=== PATIENT | male | born 1975 | race Caucasian/White ===

== ENCOUNTER 2017-01-29 03:27 | Emergency (ER) | payer OTHER ==
[~2017-01-29] VITALS: Ht 175.3 cm; Wt 100.5 kg
[2017-01-29 03:32] VITALS: Ht 175.3 cm; Wt 100.5 kg
[2017-01-29] MEDS ORDERED: ASPIRIN 325 MG TAB PO STA (04:17)
[2017-01-29] MEDS ORDERED: LIDOCAINE/MYLANTA 40 ML BTL PO ONE (04:30)
--- NOTE | 2017-01-29 04:47 | RADRPT ---
PROCEDURE: CHEST - 1 VIEW CLINICAL INDICATION: 41-year-old male with chest pain. TECHNIQUE: A single frontal AP portable view of the chest was performed. The images were reviewed on a PACS workstation. COMPARISON: None. FINDINGS: The cardiomediastinal silhouette has a normal appearance. There is a shallow inspiration. There is mild bibasilar subsegmental atelectasis. There is no evidence for an infiltrate. There is no evid ence for congestive heart failure. There is no evidence for pneumothorax. The osseous structures are intact. IMPRESSION: Shallow inspiration with mild bibasilar subsegmental atelectasis. .Glenn Newberry MD, MD Date Time Electronically viewed and signed by .Glenn Newberry MD, on 01/29/2017 04:47 .Pelon/
[2017-01-29 05:01] LABS: ADD SCAN DIFF NO
[2017-01-29 05:02] LABS: BASOPHILS % 0.5 % (0.0-2.0); EOSINOPHILS % 0.3 % (0.0-7.0); HEMATOCRIT 47.8 % (42.0-52.0); HEMOGLOBIN 17.2 g/dl (14.0-18.0); LYMPHOCYTES # 1.8 10^3/ul (0.8-2.9); LYMPHOCYTES % 20.6 % (15.0-51.0); MEAN CORPUSCULAR HEMOGLOBIN 31.4 pg (29.0-33.0); MEAN CORPUSCULAR VOLUME 87.2 fl (82.0-101.0); MEAN PLATELET VOLUME 10.1 fl (7.4-10.4); MONOCYTE # 0.7 10^3/ul (0.3-0.9); MONOCYTES % 8.6 % (0.0-11.0); NEUTROPHILS % 69.8 % (39.0-77.0); PLATELET COUNT 291 10^3/UL (140-415); RED BLOOD COUNT 5.48 10^6/ul (4.70-6.10); RED CELL DISTRIBUTION WIDTH 12.2 % (11.5-14.5); WHITE BLOOD COUNT 8.6 10^3/ul (4.8-10.8)
[2017-01-29 05:11] LABS: CHLORIDE 95 mmol/L (97-110)
[2017-01-29 05:12] LABS: POTASSIUM 3.6 mmol/L (3.5-5.1); SODIUM 136 mmol/L (135-144)
[2017-01-29 05:15] LABS: ANION GAP 22 (8-16); BLOOD UREA NITROGEN 9 mg/dl (7-20); CALCIUM 8.5 mg/dl (8.4-10.2); CARBON DIOXIDE 23 mmol/L (21-31); GLUCOSE 123 mg/dl (70-220)
[2017-01-29 05:20] LABS: INR 1.11; PARTIAL THROMBOPLASTIN TIME 27.9 Sec (25.0-35.0); PROTIME 14.3 Sec (12.2-14.2); PT RATIO 1.1
[2017-01-29] MEDS ORDERED: KETOROLAC 30 MG INJ IV STA (05:23)
[2017-01-29 05:30] LABS: TROPONIN-I < 0.012 ng/ml (0.00-0.12)
[2017-01-29] MEDS ORDERED: morphine 4 MG/ML VIAL IV STA (10:23)
[2017-01-29] MEDS ORDERED: ONDANSETRON 4 MG INJ IV STA (10:23)
[2017-01-29] MEDS ORDERED: SOD CHLORIDE 0.9% 500 ML IV STA (10:23)
[2017-01-29 10:41] LABS: BILIRUBIN,INDIRECT 0.8 mg/dl (0-1.1); BILIRUBIN,TOTAL 0.8 mg/dl (0.2-1.3); TOTAL PROTEIN 7.9 g/dl (6.1-8.1)
--- NOTE | 2017-01-29 12:19 | ERA ---
ER Documentation Chief Complaint Date/Time DATE: 01/29/17 TIME: 12:16 Chief Complaint chest pain x 2 hours HPI This is a 41-year-old gentleman prior history of cholecystectomy who presents to the emergency room complaining of epigastric abdominal discomfort. The patient describes approximately 2 hours prior to arrival epigastric abdominal discomfort that he describes as fullness. He denies any pleuritic pain, no shortness of breath. He describes multiple episodes of nonbloody nonbilious emesis. Bowel movement yesterday. At triage she noted chest pain but denies any focal chest pain to me, no exertional symptoms. ROS All systems reviewed and are negative except as per history of present illness. Medications Home Meds Active Scripts Dicyclomine Hcl* (Bentyl*) 10 Mg Capsule, 10 MG PO QID Y for abdominal cramping , #30 CAP Prov:ALBER GILLIS MD 01/29/17 Ondansetron (Ondansetron Odt) 4 Mg Tab.rapdis, 4 MG PO Q6H Y for NAUSEA AND/OR VOMITING, #30 TAB Prov:ALBER GILLIS MD 01/29/17 Allergies Allergies: Coded Allergies: No Known Drug Allergies (Verified Allergy, Unknown, 01/29/17) PMhx/Soc History of Surgery: No Anesthesia Reaction: No Hx Neurological Disorder: No Hx Respiratory Disorders: No Hx Cardiac Disorders: No Hx Psychiatric Problems: No Hx Miscellaneous Medical Probl: No Hx Alcohol Use: No Hx Substance Use: No Hx Tobacco Use: No Smoking Status: Never smoker FmHx Family History: No diabetes Physical Exam Vitals Vital Signs Date Time Temp Pulse Resp B/P Pulse Ox O2 Delivery O2 Flow Rate FiO2 01/29/17 12:52 98.4 86 18 142/73 97 Room Air 01/29/17 11:07 98.4 84 20 150/81 97 Room Air 01/29/17 09:00 80 26 136/94 97 Room Air 01/29/17 06:30 87 24 133/94 98 Room Air 01/29/17 04:50 85 22 127/91 96 Room Air 01/29/17 04:05 93 25 138/98 98 Room Air 01/29/17 03:32 98.0 105 20 153/96 96 Physical Exam General: Uncomfortable Head: Normocephalic, atraumatic. Eyes: Pupils equally reactive, EOM intact ENT: Moist mucous membranes Neck: Supple, no lymphadenopathy Respiratory: Lungs clear bilaterally, no distress Cardiovascular: RRR, no murmurs, rubs, or gallops Abdominal: Soft, focal tenderness to the epigastrium, slightly right-sided, no peritonitis, no rebound or guarding, no pulsatile mass : Deferred MSK: No edema, no unilateral swelling, 5/5 strength Neurologic: Alert and oriented, moving all extremities, normal speech, no focal weakness, no cerebellar signs Skin: No rash Psych: Normal mood Result Diagram: 01/29/1741901/29/17419 Results 24 hrs Laboratory Tests Test 01/29/17 04:20 White Blood Count 8.610^3/ul Red Blood Count 5.4810^6/ul Hemoglobin 17.2g/dl Hematocrit 47.8% Mean Corpuscular Volume 87.2fl Mean Corpuscular Hemoglobin 31.4pg Mean Corpuscular Hemoglobin Concent 36.0g/dl Red Cell Distribution Width 12.2% Platelet Count 91274^3/UL Mean Platelet Volume 10.1fl Neutrophils % 69.8% Lymphocytes % 20.6% Monocytes % 8.6% Eosinophils % 0.3% Basophils % 0.5% Nucleated Red Blood Cells % 0.0/100WBC Neutrophils # 6.010^3/ul Lymphocytes # 1.810^3/ul Monocytes # 0.710^3/ul Eosinophils # 0.010^3/ul Basophils # 0.010^3/ul Nucleated Red Blood Cells # 0.010^3/ul Prothrombin Time 14.3Sec Prothrombin Time Ratio 1.1 INR International Normalized Ratio 1.11 Activated Partial Thromboplast Time 27.9Sec Sodium Level 136mmol/L Potassium Level 3.6mmol/L Chloride Level 95mmol/L Carbon Dioxide Level 23mmol/L Anion Gap 22 Blood Urea Nitrogen 9mg/dl Creatinine 0.70mg/dl Glucose Level 123mg/dl Calcium Level 8.5mg/dl Total Bilirubin 0.8mg/dl Direct Bilirubin 0.00mg/dl Indirect Bilirubin 0.8mg/dl Aspartate Amino Transf (AST/SGOT) 89IU/L Alanine Aminotransferase (ALT/SGPT) 103IU/L Alkaline Phosphatase 98IU/L Troponin I < 0.012ng/ml Total Protein 7.9g/dl Albumin 5.0g/dl Lipase 131U/L Current Medications Medications (Trade) Dose Ordered Sig/Kuldeep Route PRN Reason Start Time Stop Time Status Last Admin Dose Admin Aspirin (Aspirin) 325 mg ONCE STAT PO 01/29/17 04:17 01/29/17 04:18 DC 01/29/17 04:29 Miscellaneous Medication (Gi Cocktail (2)) 40 ml ONCE ONCE PO 01/29/17 04:30 01/29/17 04:31 DC 01/29/17 04:29 Ketorolac Tromethamine 30 mg 30 mg ONCE STAT IV 01/29/17 05:23 01/29/17 05:24 DC 01/29/17 05:30 Sodium Chloride (NS) 500 ml @ 500 mls/hr Q1H STAT IV 01/29/17 10:23 01/29/17 11:22 DC 01/29/17 10:37 Morphine Sulfate (morphine) 4 mg ONCE STAT IV 01/29/17 10:23 01/29/17 10:25 DC 01/29/17 10:37 Ondansetron HCl (Zofran Inj) 4 mg ONCE STAT IV 01/29/17 10:23 01/29/17 10:25 DC 01/29/17 10:37 Lorazepam (Ativan) 1 mg ONCE ONCE IV 01/29/17 13:00 01/29/17 13:01 DC 01/29/17 12:50 Procedures/MDM EKG, MONITORS, & DIAGNOSTIC IMAGING: EKG: I reviewed and interpreted a 12-lead EKG. Rhythm: Normal sinus rhythm Ectopy: None Intervals: No abnormalities ST segments: No elevations or depressions T waves: No contiguous inversions Chest x-ray: I reviewed and interpreted a 1 view of the chest Mediastinum: No enlargement Cardiac silhouette: No cardiomegaly Airspace: Clear lung cabral bilaterally without evidence of pneumothorax Bones: No evidence of fracture CT abdomen and pelvis: IMPRESSION: 1. No CT evidence of acute intra-abdominal or pelvic process. 2. Mild right posterior lower lobe subsegmental atelectasis. 3. Fatty infiltration of the liver. 4. Status post cholecystectomy. 5. 2 mm left lower pole nonobstructing renal calculus. 6. 7 mm nonspecific exophytic lesion arising from the upper pole of the left kidney. Consider further evaluation with ultrasound as indicated. 7. Moderate periumbilical hernia containing only fat. RPTAT: KK LAB INTERPRETATION: Negative troponin x 2 MEDICAL DECISION MAKING: The patient presents with epigastric abdominal pain. At triage it was noted that the patient had chest pain but he denies this to me. No significant risk factors for early cardiac disease, no signs of PE or dissection. He has no risk factors for pulmonary embolism. The patient seems to have focal tenderness to the abdomen. The patient has a broad differential including bowel obstruction, gastritis, peptic ulcer disease. ER COURSE: The patient was given a GI cocktail with no significant improvement. EKG and troponin are negative. Given persistence of symptoms CT imaging of the abdomen and pelvis was ordered. Patient given IV fluids and pain medication. The patient had improvement after Ativan was provided. Repeat abdominal exam is improving. The patient's laboratory testing is unrevealing and CT imaging is negative. Troponin negative 2. At this time I do not believe this is cardiogenic. The patient has limited risk factors for cardiogenic processes. Consider possible viral syndrome versus gastritis versus peptic ulcer disease. The patient will be referred to gastroenterology, initiated on Zofran and Bentyl. Advised [id number] Pepcid. The patient verbalizes understanding. We discussed return precautions for worsening symptoms. I kept the patient and/or family informed of laboratory and diagnostic imaging results throughout the emergency room course. DISPOSITION PLAN: We discussed follow up with the patient's primary care doctor within 24 to 48 hours as needed. We also discussed return to the emergency room for worsening symptoms or worsening condition. Outpatient referral: Gastroenterology Discharge Medications: Zofran, Bentyl Departure Diagnosis: Primary Impression: Epigastric abdominal pain Additional Impression: Nausea and vomiting Qualified Code: R11.2 - Non-intractable vomiting with nausea, unspecified vomiting type Condition: Stable ALBER GILLIS MD Jan 29, 2017 12:19
[2017-01-29] MEDS ORDERED: LORAZEPAM 2 MG INJ IV ONE (13:00)
--- NOTE | 2017-01-29 13:07 | RADRPT ---
PROCEDURE: CT Abdomen and Pelvis without contrast. CLINICAL INDICATION: Abdominal pain TECHNIQUE: CT scan of the abdomen and pelvis without contrast was performed on a multi-slice CT sc madi without intravenous contrast. Coronal and sagittal reformatted images were obtained from the axial source images. Images were reviewed on a high-resolution PACS workstation. One or more of the following does reduction techniques were used: Automated exposure control; adjustment of the mA an d/or kV according to patient size; use of the aorta of reconstruction technique. The total exam CTD I equals 23.24 mGy and the total exam DLP equals 1429.5 mGy-cm. COMPARISON: None available. FINDINGS: There is mild right posterior lower lobe subsegmental atelectasis. Lung bases are otherwise clear. Heart size is normal, and there is no evidence of pericardial thickening or effusion. The liver demonstrates diffuse decreased attenuation consistent with fatty infiltration. The liver, spleen, and pancreas are otherwise normal given the limitations of a noncontrast CT examination. T he gallbladder is surgically absent. The adrenal glands are normal. There is a 2 mm left lower pole nonobstructing renal calculus. No o ther renal calculi are seen. There is a 7 mm lesion arising exophytically from the upper pole of th e left kidney which is too small to characterize. There is no evidence of hydronephrosis.. The aorta is of normal caliber. There is no retroperitoneal lymph node enlargment. There is no evidence of large or small bowel obstruction. A normal appendix is identified.. No fr ee fluid or fluid collections are identified. No inflammatory changes are seen. There is a moderate periumbilical hernia containing only fat No enlarged pelvic sidewall lymph nodes are seen. The bladder is within normal limits. No free fl uid is identified. The inguinal regions are unremarkable. There are mild to moderate degenerative changes of the lumbar spine. IMPRESSION: 1. No CT evidence of acute intra-abdominal or pelvic process. 2. Mild right posterior lower lobe subsegmental atelectasis. 3. Fatty infiltration of the liver. 4. Status post cholecystectomy. 5. 2 mm left lower pole nonobstructing renal calculus. 6. 7 mm nonspecific exophytic lesion arising from the upper pole of the left kidney. Consider furt her evaluation with ultrasound as indicated. 7. Moderate periumbilical hernia containing only fat. RPTAT: KK .Toño Guillen MD, MD Date Time Electronically viewed and signed by .Toño Guillen MD, MD on 01/29/2017 13:06 .B/
[2017-01-29] MEDS ORDERED: ONDA4TAB14 PO (13:34)
[2017-01-29] MEDS ORDERED: DICY10CA60 PO (13:34)
[2017-01-29 14:14] VITALS: BP 128/76; PULSE 82; RESP 16; TEMP 98.4
== END 2017-01-29 14:16 | disposition home or self-care (01) ==
LOC: E/R 03:27
DX: R10.13 Epigastric pain (principal); R11.2 Nausea with vomiting, unspecified
CPT/HCPCS: 36415; 71010; 74176; 80048; 80076; 83690; 84484; 85025; 85610; 85730; 93005; 96374; 96375; J1885; J2060; J2270; J2405; J7040; Z7502; Z7610

== ENCOUNTER 2018-12-12 03:47 | Emergency (ER) | payer OTHER ==
[~2018-12-12] VITALS: Ht 162.6 cm; Wt 73.4 kg
[~2018-12-12 03:47] MED LIST: DICY10CA40 PO; ONDA4TAB14 PO
[2018-12-12 03:57] VITALS: Ht 162.6 cm; Wt 73.4 kg
--- NOTE | 2018-12-12 04:32 | PSY ---
Date/Time of Note Date/Time of Note DATE: 12/12/18 TIME: 04:27 Psychiatric Subjective Eval Consent Pt consented to telemedicine: Yes Subjective Evaluation Patient location: emergency Chief Complaint: anxiety, paranoid schizophrenia, out of meds Medical history Problems Medical Problems: (1) Epigastric abdominal pain Status: Acute (2) Nausea and vomiting Status: Acute Allergies: Coded Allergies: No Known Drug Allergies (Verified Allergy, Unknown, 01/29/17) Assessment and Plan Recommendation/Plan Discharge Disposition: Psychiatric inpatient Legal Status: Voluntary Assessment Additional comments: IDENTIFYING INFORMATION: 43 year old Male patient who is currently located at the hospital and for whom psychiatric consultation was requested. SOURCES OF INFORMATION: The patient who appears to be unreliable and the medical records; the nursing staff. CHIEF COMPLAINT: "voices". HISTORY OF PRESENT ILLNESS: The patient was interviewed via telemedicine in the presence of and under the supervision of nursing staff of the hospital. The consent to conducting this interview via telemedicine was obtained by the nursing staff at the hospital. RN Madison reports that the patient presented with anxiety, AH, is scared he might hurt himself. The patient reports having AH, SI, delusions. The patient denies having HI. The patient denies using alcohol heavily or regularly. The patient reports using "hallucinogenic drugs". The patient denies using any other substances. In terms of past psychiatric history, the patient reports having a history of past psychiatric hospitalizations. The patient reports having a history of past suicide attempts. Past medication trials: lithium, nexium. PAST MEDICAL HISTORY: none. CURRENT MEDICATIONS: none. ALLERGIES TO MEDICATIONS: NKDA. LABORATORY TESTS: pending. SOCIAL HISTORY: unable to assess fully, lives alone, REVIEW OF SYSTEMS: Constitutional (e.g., fever, weight loss): negative; Eyes, Ears, Nose, Mouth, Throat: negative; Cardiovascular: negative; Respiratory: negative; Gastrointestinal: negative; Genitourinary: negative; Musculoskeletal: negative; Integumentary (skin and/or breast): negative; Neurological: negative; Psychiatric: as per HPI; Endocrine: negative; Hematologic/Lymphatic: negative; Allergic/Immunologic: negative. MENTAL STATUS EXAMINATION: General Appearance and Behavior: Calm, cooperative with the interview, pleasant with the current interviewer, makes fair eye contact, fairly groomed, no abnormal movements noted, Speech: Regular rate, regular rhythm, normal latency, normal volume, somewhat decreased amount, Flow of thought: illogical, tangential, Content of thought: + auditory hallucinations, no visual hallucinations, + delusions, positive for suicidal ideation; no homicidal ideation, Mood: "depressed", Affect: dysthymic, dysphoric, not reactive, Attention: normal based on the interview, Insight: fair, Judgment: poor, Memory: normal based on the interview, Sensorium: alert and oriented to person, unable to assess fully. ASSESSMENT: The patient's presentation and history are consistent with the diagnosis of unspecified psychotic disorder, stimulant use disorder. The patient presents with an exacerbation of psychosis in the context of medication noncompliance, psychosocial stressors and substance use. PLAN: - Medication management: Would start Zyprexa 5 mg by mouth twice a day. Would start haloperidol 5 mg IM PRN severe agitation q4 hours. Would start diphenhydramine 50 mg IM PRN severe agitation q4 hours. Would start lorazepam 2 mg IM PRN severe agitation q4 hours Will defer to the inpatient psychiatry team for other medication changes. - Labs: Please check CBC, CMP, Alcohol level, UDS. - Psychotherapy: Provided supportive psychotherapy and psychoeducation. - Disposition: Would recommend voluntary admission to the inpatient psychiatric unit as the patient would benefit from such an intervention so long as the patient has been cleared medically for admission to psychiatry. The patient is agreeable to being hospitalized in the inpatient psychiatric unit at this time. Would place on suicide precautions. I called the emergency room physician who is taking care of the patient to disc uss about the above plan but the emergency room physician is not available at this time. I left my phone number with the hospital staff requesting a callback so that the emergency room physician can reach me when they become available. NIKITA WATTERS MD Dec 12, 2018 04:32
--- NOTE | 2018-12-12 05:29 | ERD ---
ER Documentation Chief Complaint Chief Complaint anxiety, paranoid schizophrenia, out of meds HPI This is a 43-year-old male who originally came for complaint of medication refill but upon arrival to the room he says he is hearing voices and he feels like he might "freak out". He has been off his meds for a few days. No nausea no vomiting no fever chills. No other current complaints. Patient denies homicidal ideation. Denies visual hallucinations. History of paranoid schizophrenia and anxiety. ROS All systems reviewed and are negative except as per history of present illness. Medications Home Meds Active Scripts Dicyclomine HCl (Dicyclomine HCl) 10 Mg Capsule, 10 MG PO QID PRN for abdominal cramping, #30 CAP Prov:ALBER GILLIS MD 01/29/17 Ondansetron (Ondansetron Odt) 4 Mg Tab.rapdis, 4 MG PO Q6H PRN for NAUSEA AND/OR VOMITING, #30 TAB Prov:ALBER GILLIS MD 01/29/17 Allergies Allergies: Coded Allergies: No Known Drug Allergies (Verified Allergy, Unknown, 01/29/17) PMhx/Soc History of Surgery: No Anesthesia Reaction: No Hx Neurological Disorder: No Hx Respiratory Disorders: No Hx Cardiac Disorders: No Hx Psychiatric Problems: Yes (zchizo,anxiety) Hx Miscellaneous Medical Probl: Yes Hx Alcohol Use: No Hx Substance Use: No Hx Tobacco Use: No Smoking Status: Unknown if ever smoked Physical Exam Vitals Vital Signs Date Temp Pulse Resp B/P (MAP) Pulse Ox O2 O2 Flow FiO2 Time Delivery Rate 12/12/18 97.1 74 18 124/69 100 03:57 (87) Physical Exam Const: No acute distress Head: Atraumatic Eyes: Normal Conjunctiva ENT: Normal External Ears, Nose and Mouth. Neck: Full range of motion. No meningismus. Resp: Clear to auscultation bilaterally Cardio: Regular rate and rhythm, no murmurs Abd: Soft, non tender, non distended. Normal bowel sounds Skin: No petechiae or rashes Back: No midline or flank tenderness Ext: No cyanosis, or edema Neur: Awake and alert Psych: Normal Mood and Affect Result Diagram: 12/12/18 0436 12/12/18435 Results 24 hrs Laboratory Tests Test 12/12/18 04:36 White Blood Count 7.3 10^3/ul Red Blood Count 4.08 10^6/ul Hemoglobin 13.0 g/dl Hematocrit 37.7 % Mean Corpuscular Volume 92.4 fl Mean Corpuscular Hemoglobin 31.9 pg Mean Corpuscular Hemoglobin Concent 34.5 g/dl Red Cell Distribution Width 12.6 % Platelet Count 225 10^3/UL Mean Platelet Volume 9.9 fl Immature Granulocytes % 0.300 % Neutrophils % 63.2 % Lymphocytes % 23.0 % Monocytes % 9.5 % Eosinophils % 3.2 % Basophils % 0.8 % Nucleated Red Blood Cells % 0.0 /100WBC Immature Granulocytes # 0.020 10^3/ul Neutrophils # 4.6 10^3/ul Lymphocytes # 1.7 10^3/ul Monocytes # 0.7 10^3/ul Eosinophils # 0.2 10^3/ul Basophils # 0.1 10^3/ul Nucleated Red Blood Cells # 0.0 10^3/ul Sodium Level 140 mmol/L Potassium Level 3.4 mmol/L Chloride Level 106 mmol/L Carbon Dioxide Level 26 mmol/L Anion Gap 8 Blood Urea Nitrogen 10 mg/dl Creatinine 0.57 mg/dl Est Glomerular Filtrat Rate mL/min > 60 mL/min Glucose Level 110 mg/dl Calcium Level 8.8 mg/dl Total Bilirubin 0.6 mg/dl Direct Bilirubin 0.00 mg/dl Indirect Bilirubin 0.6 mg/dl Aspartate Amino Transf (AST/SGOT) 52 IU/L Alanine Aminotransferase (ALT/SGPT) 34 IU/L Alkaline Phosphatase 78 IU/L Total Protein 6.3 g/dl Albumin 3.8 g/dl Globulin 2.50 g/dl Albumin/Globulin Ratio 1.52 Salicylates Level < 1.0 mg/dl Acetaminophen Level < 10.0 ug/ml Ethyl Alcohol Level 16.0 mg/dl Procedures/MDM Patient's behavioral symptoms have stabilized while in the department. Patient is medically cleared and appropriate for psychiatric evaluation and work up. No e/o neurologic, toxic, infectious, or metabolic cause. Patient recommended for voluntary hold by telemetry psychiatry. Pending bed placement at this time. Departure Diagnosis: Primary Impression: Psychosis Psychosis type: unspecified psychosis type Qualified Codes: F29 - Unspecified psychosis not due to a substance or known physiological condition Condition: MARCUS Marion Dec 12, 2018 05:29
[2018-12-12 08:30] VITALS: BP 132/82; PULSE 78; RESP 16
--- NOTE | 2018-12-12 11:48 | QN ---
Documentation Comment Emergency medicine reevaluation note: 43-year-old man presented last night for anxiety and requesting medication refill. During his stay and ED workup he did receive a tele-psychiatry consultation and psychiatrist recommended voluntary hold. Patient had no complaints of suicidal homicidal ideation and had no plan to kill himself or hurt others. I reevaluated the patient he remains without suicidal or homicidal ideation and states he has no plan. His vital signs are normal and his anxiety and overall psychiatric symptoms have improved. Patient will be discharged from the ED as he has no desire to undergo voluntary psychiatric admission. Patient feels much better at this time, and vital signs are normal, symptoms have improved. I did give strict instructions to return to the ED if symptoms continue or worsen, patient will otherwise follow-up with primary care physician. Patient understood instructions and agreed to plan. SCARLETT FRANK MD Dec 12, 2018 11:48
== END 2018-12-12 10:56 | disposition home or self-care (01) ==
LOC: E/R 03:47
DX: F29 Unspecified psychosis not due to a substance or known physiological condition (principal)
CPT/HCPCS: 36415; 80053; 80307; 85025; Z7502; 99283